=== PATIENT | female | born 1970 | race Caucasian/White ===

== ENCOUNTER → 2023-12-17 09:15 | Outpatient (REF) | payer BC, SELFPAY | LOC: HWRAD 09:15 | PROVIDERS: ATTENDING PHYSICIAN Internal Medicine; FAMILY PHYSICIAN Physician Assistant Medical | DX: R16.0 Hepatomegaly, not elsewhere classified (principal); R07.9 Chest pain, unspecified | CPT/HCPCS: 76700 ==

== ENCOUNTER → 2023-12-22 06:33 | Day surgery (SDC) | payer BC, SELFPAY | LOC: GI 06:33 | PROVIDERS: ATTENDING PHYSICIAN Internal Medicine; FAMILY PHYSICIAN Physician Assistant Medical | DX: R10.13 Epigastric pain (principal); K31.7 Polyp of stomach and duodenum; K29.50 Unspecified chronic gastritis without bleeding | CPT/HCPCS: 43239; 88305; 88342 ==

== ENCOUNTER → 2024-10-24 06:18 | Outpatient (REF) | payer BC, SELFPAY ==
[2024-10-24 07:35] LABS: % Basophils 0.2 % (0-2); % Immature Granulocytes 0.6 % (0-0.5); % Lymphocytes 38.5 % (20.5-51.1); % Monocytes 6.8 % (1.7-9.3); % Neutrophils 50.9 % (42.2-75.2); Absolute Eosinophils 0.3 10^3/uL (0-0.7); Absolute Immature Granulocytes 0.1 10^3/uL (0-0.05); Absolute Lymphocytes 3.2 10^3/uL (1.2-3.4); Absolute Monocytes 0.6 10^3/uL (0.1-0.6); Absolute Neutrophils 4.2 10^3/uL (1.4-6.5); Hematocrit 41.4 % (37.0-47.0); Hemoglobin 13.5 g/dL (12.0-16.0); Mean Corp Hgb Conc. 32.6 g/dL (33.0-37.0); Mean Corpuscular Hgb 29.1 pg (27.0-31.0); Mean Corpuscular Volume 89.2 fL (81.0-99.0); Mean Platelet Volume 9.1 fL (7.4-10.4); Nucleated Red Blood Cells % 0 %; Platelet Count 367 10^3/uL (130-400); Red Blood Cell Count 4.64 10^6/uL (4.20-5.40); Red Cell Dist. Width 12.5 % (11.5-14.5); White Blood Cell Count 8.3 10^3/uL (4.8-10.8)
[2024-10-24 08:02] LABS: ALT (SGPT) 116 U/L (0-35); AST (SGOT) 28 U/L (14-36); Alkaline Phosphatase 109 U/L (38-126); Amylase 53 U/L (30-110); Blood Urea Nitrogen 24 mg/dl (7-17); Calcium 9.6 mg/dl (8.4-10.2); Carbon Dioxide 30 mmol/L (22-30); Chloride 104 mmol/L (98-107); Glucose 89 mg/dl (70-99); HDL Cholesterol 68 mg/dl; LDL Cholesterol, Calculated 141 mg/dl; Lipase 51 U/L (23-300); Potassium 4.9 mmol/L (3.5-5.1); Sodium 139 mmol/L (135-145); Total Bilirubin 0.5 mg/dl (0.2-1.3); Total Cholesterol 222 mg/dl (50-199); Total Protein 6.6 g/dl (6.3-8.2); Triglyceride 67 mg/dl (10-149); Very Low Density Lipoprotein 13 mg/dl (0-30); eGFR > 60.00
[2024-10-24 08:27] LABS: TSH Reflex To Free T4 2.94 uIU/ml (0.47-4.68)
== END ==
LOC: REG 06:18
PROVIDERS: ATTENDING PHYSICIAN Physician Assistant Medical
DX: Z00.00 Encounter for general adult medical examination without abnormal findings (principal); I10 Essential (primary) hypertension; R07.89 Other chest pain; K80.20 Calculus of gallbladder without cholecystitis without obstruction; K63.5 Polyp of colon; Z68.35 Body mass index [BMI] 35.0-35.9, adult; Z12.31 Encounter for screening mammogram for malignant neoplasm of breast
CPT/HCPCS: 36415; 80053; 80061; 82150; 83690; 84443; 85025

== ENCOUNTER → 2024-11-21 07:50 | Outpatient (REF) | payer BC, SELFPAY | LOC: RAD 07:50 | PROVIDERS: ATTENDING PHYSICIAN Physician Assistant Medical | DX: R07.89 Other chest pain (principal) | CPT/HCPCS: 78226; A9537 ==

== ENCOUNTER → 2024-11-23 07:47 | Outpatient (REF) | payer BC, SELFPAY | LOC: WDC 07:47 | PROVIDERS: ATTENDING PHYSICIAN Physician Assistant Medical | DX: Z12.31 Encounter for screening mammogram for malignant neoplasm of breast (principal) | CPT/HCPCS: 77063; 77067 ==

== ENCOUNTER → 2024-11-29 09:27 | Outpatient (REF) | payer BC, SELFPAY | LOC: WDC 09:27 | PROVIDERS: ATTENDING PHYSICIAN Physician Assistant Medical | DX: R92.8 Other abnormal and inconclusive findings on diagnostic imaging of breast (principal) | CPT/HCPCS: 76642 ==